=== PATIENT | female | born 1975 | race African-American/Black ===

== ENCOUNTER 2018-03-03 03:32 | Emergency (ER) | payer MEDICAID ==
[~2018-03-03] VITALS: Ht 157.5 cm; Wt 77.1 kg
[2018-03-03 03:47] VITALS: BP_SYST 111
--- NOTE | 2018-03-03 03:47 | NUR ---
Placed in room 07 . Placed on potline monitor, blood pressure machine and pulse oximeter. To gown for exam. Side rails up. Report given to PAOLA Omalley.
--- NOTE | 2018-03-03 03:50 | NUR ---
Patient AAOx4, ambulatory. Patient states having a main complaint of dizziness with chest pain since earlier this evening. Patient states current pain scale 5/10 at this time; patient states pain radiates to right arm. Patient states having mild difficulty breathing. No accessory muscle use noted. Patient denies any other complaints.
[2018-03-03 04:33] LABS: BASOPHILS # (AUTO) 0.1 K/uL (0.0-0.2); BASOPHILS % (AUTO) 1.9 % (0.0-2.0); EOSINOPHILS # (AUTO) 0.2 K/uL (0.0-0.4); EOSINOPHILS % (AUTO) 2.6 % (0.0-4.0); HEMATOCRIT 32.1 % (36-48); HEMOGLOBIN 10.2 g/dL (12.0-16.0); LYMPHOCYTES # (AUTO) 1.7 K/uL (1.0-5.5); MEAN CORPUSCULAR HEMOGLOBIN 24 pg (27-31); MEAN CORPUSCULAR HGB CONC 32 % (32-36); MEAN CORPUSCULAR VOLUME 77 fL (79.0-98.0); MONOCYTES # (AUTO) 0.6 K/uL (0.0-1.0); MONOCYTES % (AUTO) 9.7 % (1.7-9.3); NEUTROPHILS # (AUTO) 3.8 K/uL (1.8-7.7); NEUTROPHILS % (AUTO) 58.8 % (40.0-70.0); PLATELET COUNT (AUTO) 294 K/uL (130-430); RED BLOOD CELL COUNT(AUTO) 4.19 MIL/uL (4.2-6.2); RED CELL DISTRIBUTION WIDTH 18.2 % (9.0-15.0); WHITE BLOOD COUNT (AUTO) 6.4 K/uL (4.8-10.8)
--- NOTE | 2018-03-03 04:35 | NUR ---
ER Dr. Ambrose at bedside examining patient.
[2018-03-03 04:43] LABS: ANION GAP 8 (5-15); CHLORIDE 105 mmol/L (98-107); CREATININE 0.88 mg/dL (0.55-1.30); GFR AFRICAN AMERICAN 90 mL/min (>90); GLUCOSE 103 mg/dL (70-99); POTASSIUM 3.8 mmol/L (3.5-5.1); SODIUM SERUM 139 mmol/L (136-145); UREA NITROGEN, BLOOD 6 mg/dL (8-21)
[2018-03-03 04:48] LABS: BILIRUBIN,URINE 1+ (NEGATIVE); BLOOD, URINE 3+ (NEGATIVE); CLARITY/URINE CLEAR (CLEAR); COLOR,URINE YELLOW (YELLOW); GLUCOSE,URINE NEGATIVE (NEGATIVE); KETONES,URINE TRACE (NEGATIVE); LEUKOCYTE ESTERASE ,URINE TRACE (NEGATIVE); NITRITE, URINE NEGATIVE (NEGATIVE); PROTEIN URINE 1+ (NEGATIVE)
[2018-03-03 04:50] LABS: BACTERIA,URINE MODERATE /HPF (None Seen); RBC,URINE >100 /HPF (0-3)
[2018-03-03 04:51] LABS: ALANINE AMINOTRANSFERASE 17 U/L (12-78); ALBUMIN 3.1 g/dL (3.4-4.8); ASPARTATE AMINOTRANSFERASE 18 U/L (10-37); TOTAL BILIRUBIN 0.4 mg/dL (0.0-1.0)
--- NOTE | 2018-03-03 04:56 | NUR ---
Patient has been medically discharged by MD Dr. Ambrose. I attempted to have the patient sign discharge papers; patient is on the phone and refuses to sign discharge papers. Patient states "I called an ambulance and they're coming to pick me up".
--- NOTE | 2018-03-03 05:02 | NUR ---
0500 pt has become very hostile. discussed all labs and ekg. states " well, what if they are all wrong " ( prior dx of "anxiety and panic attacks") attempted to explain to pt my diagnosis. became very argumentive suggested to follow up with pmd to discuss options for anxiety symptoms,but would not let finish a sentence. attempted to meet pt questions and needs, agreed to give copies of all lab results
--- NOTE | 2018-03-03 05:05 | NUR ---
Attempted to discharge patient. Patient on the phone, ignoring nursing staff and this nurse. Patient called 911 stating she was not evaluated or treated by the doctor despite: EKG, CBC,CMP, TROPONIN,URINALYSIS, with cardiac monitoring being perfomed in this ED. Patient was informed of lab results and explanation of lab results were given by MD. Patient refused to accept discharge diagnosis and is refusing to sign discharge papers at this time. MD and supervisors aware of patient situation at this time.
--- NOTE | 2018-03-03 05:06 | NUR ---
Patient complained stating "no one even brought me water!"...large water bottle noted to be at bedside with patient.
[2018-03-03 05:10] VITALS: BP_SYST 112
--- NOTE | 2018-03-03 05:10 | NUR ---
Patient ambulated out of ED with a steady gait, in no acute distress, upset over discharge. Patient sat briefly in ED waiting room before exiting the ED waiting area.
== END 2018-03-03 05:10 | disposition home or self-care (01) ==
LOC: SED 03:32
DX: N39.0 Urinary tract infection, site not specified (principal); R51 Headache; Z86.2 Personal history of diseases of the blood and blood-forming organs and certain disorders involving the immune mechanism
CPT/HCPCS: 36415; 80053; 81000-TC; 84484; 85025; 87086; 93005; 99285